=== PATIENT | born 1970 | race Caucasian/White ===

== ENCOUNTER 2024-03-21 10:20 | Emergency (ER) | payer BC, OTHER | END 2024-03-21 11:53 | disposition home or self-care (01) | LOC: ERS 10:20 | DX: S60.512A Abrasion of left hand, initial encounter (principal); M25.562 Pain in left knee; M79.645 Pain in left finger(s); V23.49XA Other motorcycle driver injured in collision with car, pick-up truck or van in traffic accident, initial encounter; Y93.I9 Activity, other involving external motion; Y92.89 Other specified places as the place of occurrence of the external cause | CPT/HCPCS: 99283 ==